=== PATIENT | male | born 1960 | race Caucasian/White ===

== ENCOUNTER 2017-10-23 21:05 | Emergency (ER) | payer SELFPAY, MEDICARE ==
[2017-10-23] MEDS: LIDOCAINE WITH 8.4% SOD BICARB 3 ML DISP.SYRIN. INJ (22:00)
== END 2017-10-23 22:47 | disposition home or self-care (01) ==
LOC: ER 21:05
DX: S01.311A Laceration without foreign body of right ear, initial encounter (principal); W01.198A Fall on same level from slipping, tripping and stumbling with subsequent striking against other object, initial encounter; Y93.E1 Activity, personal bathing and showering; Y92.89 Other specified places as the place of occurrence of the external cause; Y99.8 Other external cause status
CPT/HCPCS: 12052; 99284-25

== ENCOUNTER 2018-01-27 23:27 | Inpatient (IN) | payer SELFPAY ==
[2018-01-28 00:35] LABS: ADD MAN DIFF? NO
[2018-01-28 00:39] LABS: BASO % 1 % (0-3); EOS # 0.1 x10^3/uL (0.0-0.7); EOS % 4 % (0-3); HEMATOCRIT 30.8 % (39.0-53.0); HEMOGLOBIN 10.3 g/dL (13.0-17.5); LYMPH # 1.4 x10^3/uL (1.0-4.8); LYMPH % 35 % (24-48); MEAN CORPUSCULAR HEMOGLOBIN 30 pg (25-35); MEAN CORPUSCULAR HGB CONC 34 g/dL (31-37); MEAN CORPUSCULAR VOLUME 89 fL (79-100); MONO # 0.5 x10^3/uL (0.0-1.1); MONO % 13 % (0-9); NEUT % 48 % (31-73); PLATELET COUNT 225 x10^3/uL (140-400); RED BLOOD COUNT 3.45 x10^6/uL (4.30-5.70); RED CELL DISTRIBUTION WIDTH 18.4 % (11.5-14.5); WHITE BLOOD COUNT 4.1 x10^3/uL (4.0-11.0)
[2018-01-28 00:45] LABS: ANION GAP 11 (6-14); BLOOD UREA NITROGEN 13 mg/dL (8-26); BUN/CREATININE RATIO 7 (6-20); CALCIUM 8.5 mg/dL (8.5-10.1); CARBON DIOXIDE 31 mmol/L (21-32); CHLORIDE 102 mmol/L (98-107); CREATININE 1.8 mg/dL (0.7-1.3); GFR 39.2; GLUCOSE 91 mg/dL (70-99); SODIUM 144 mmol/L (136-145)
[2018-01-28 00:51] LABS: ALBUMIN 2.8 g/dL (3.4-5.0); ALBUMIN/GLOBULIN RATIO 0.6 (1.0-1.7); ALK PHOS 116 U/L (46-116); ALT (SGPT) 23 U/L (16-63); AST (SGOT) 63 U/L (15-37); TOTAL BILIRUBIN 0.2 mg/dL (0.2-1.0); TOTAL PROTEIN 7.3 g/dL (6.4-8.2)
[2018-01-28] MEDS ORDERED: VANCOMYCIN 1 GM in IV DEXTROSE 5% 250 ML IV (01:45)
[2018-01-28] MEDS: POTASSIUM CHLORIDE 20 MEQ TABLET.ER. PO (02:06)
[2018-01-28] MEDS: MORPHINE SULFATE 2 MG/ML DISP.SYRIN. IV ×5 (02:06→23:22)
[2018-01-28] MEDS: ONDANSETRON PF 4 MG/2 ML VIAL. IV ×2 (02:06→08:19)
[2018-01-28] MEDS: VANCOMYCIN 2 GM in IV 1/2 NORMAL SALINE 500 ML IV (02:07)
[2018-01-28 02:14] LABS: LACTIC ACID 1.9 mmol/L (0.4-2.0)
[2018-01-28] MEDS: VANCOMYCIN PER PHARMACY MC (03:37)
[2018-01-28] MEDS: LACTOBACILLUS RHAMNOSUS GG 1 CAPSULE. PO ×2 (08:19→20:41)
[2018-01-28] MEDS: METHADONE (DAILY MAINT DOSE) 100 MG/100 ML SOLUTION PO (09:58)
[2018-01-28 10:20] LABS: SEDIMENTATION RATE 71 (0-15)
[2018-01-28] MEDS ORDERED: LIDOCAINE WITH 8.4% SOD BICARB 3 ML DISP.SYRIN. ×2 (10:55→10:56)
[2018-01-28] MEDS: LIDOCAINE WITH 8.4% SOD BICARB 3 ML DISP.SYRIN. INJ (11:10)
[2018-01-28] MEDS: MULTIVIT INFUSN,ADULT 4,VIT K 10 ML, THIAMINE 100 MG, FOLIC ACID 1 MG in IV NORMAL SALI... IV (11:29)
[2018-01-28] MEDS ORDERED: chlordiazePOXIDE HCL 25 MG CAPSULE PO (12:30)
[2018-01-28] MEDS ORDERED: CEFEPIME HCL 2 GM in IV DEXTROSE 5% 100ML 100 ML IV (14:00)
[2018-01-28] MEDS: CEFEPIME HCL IV Push 2 GM VIAL. IVP ×2 (14:48→20:41)
[2018-01-28] MEDS: MICAFUNGIN 100 MG in IV DEXTROSE 5% 100ML 100 ML IV (14:48)
[2018-01-28] MEDS: IV NORMAL SALINE 1000ML BAG 1,000 ML IV ×2 (22:30→23:28)
[2018-01-29] MEDS ORDERED: VANCOMYCIN 1.5 GM in IV 1/2 NORMAL SALINE 500 ML IV (02:00)
[2018-01-29] MEDS ORDERED: VANCOMYCIN 1.25 GM in IV 1/2 NORMAL SALINE 250 ML IV (02:00)
[2018-01-29 06:11] LABS: ANION GAP 6 (6-14); BLOOD UREA NITROGEN 9 mg/dL (8-26); CALCIUM 8.9 mg/dL (8.5-10.1); CARBON DIOXIDE 31 mmol/L (21-32); CHLORIDE 100 mmol/L (98-107); CREATININE 0.9 mg/dL (0.7-1.3); GFR 87.3; GLUCOSE 101 mg/dL (70-99); POTASSIUM 3.2 mmol/L (3.5-5.1); SODIUM 137 mmol/L (136-145)
[2018-01-29] MEDS: CEFEPIME HCL IV Push 2 GM VIAL. IVP ×3 (06:17→23:33)
[2018-01-29] MEDS: MORPHINE SULFATE 2 MG/ML DISP.SYRIN. IV ×2 (06:25→23:59)
[2018-01-29] MEDS: IV NORMAL SALINE 1000ML BAG 1,000 ML IV ×2 (08:30→18:30)
[2018-01-29] MEDS: METHADONE (DAILY MAINT DOSE) 100 MG/100 ML SOLUTION PO (08:37)
[2018-01-29] MEDS: ACETAMINOPHEN 500 MG TABLET PO (08:38)
[2018-01-29] MEDS: FOLIC ACID 1 MG TABLET. PO (08:38)
[2018-01-29] MEDS: MULTIVITAMIN with MINERAL TABLET. PO (08:38)
[2018-01-29] MEDS: THIAMINE 100 MG TABLET. PO (08:38)
[2018-01-29] MEDS: LACTOBACILLUS RHAMNOSUS GG 1 CAPSULE. PO ×2 (08:38→21:41)
[2018-01-29] MEDS: LORazepam 0.5 MG TABLET PO ×2 (08:38→14:00)
[2018-01-29] MEDS: MICAFUNGIN 100 MG in IV DEXTROSE 5% 100ML 100 ML IV (13:59)
[2018-01-29] MEDS: POTASSIUM CHLORIDE 20 MEQ TABLET.ER. PO (14:00)
[2018-01-29] MEDS: oxyCODONE/APAP 5/325 1 TAB TABLET PO ×2 (14:01→21:41)
[2018-01-29] MEDS: NICOTINE 21MG PATCH. TD (23:55)
[2018-01-30] MEDS: oxyCODONE/APAP 5/325 1 TAB TABLET PO ×2 (03:11→11:33)
[2018-01-30] MEDS: IV NORMAL SALINE 1000ML BAG 1,000 ML IV (03:12)
[2018-01-30 04:04] LABS: ADD MAN DIFF? NO
[2018-01-30 04:14] LABS: BASO % 1 % (0-3); EOS # 0.2 x10^3/uL (0.0-0.7); EOS % 7 % (0-3); HEMATOCRIT 34.5 % (39.0-53.0); HEMOGLOBIN 11.3 g/dL (13.0-17.5); LYMPH # 0.7 x10^3/uL (1.0-4.8); LYMPH % 31 % (24-48); MEAN CORPUSCULAR HEMOGLOBIN 29 pg (25-35); MEAN CORPUSCULAR HGB CONC 33 g/dL (31-37); MEAN CORPUSCULAR VOLUME 89 fL (79-100); MONO # 0.4 x10^3/uL (0.0-1.1); MONO % 15 % (0-9); NEUT # 1.1 x10^3uL (1.8-7.7); NEUT % 47 % (31-73); PLATELET COUNT 185 x10^3/uL (140-400); RED BLOOD COUNT 3.87 x10^6/uL (4.30-5.70); RED CELL DISTRIBUTION WIDTH 17.1 % (11.5-14.5); WHITE BLOOD COUNT 2.4 x10^3/uL (4.0-11.0)
[2018-01-30 04:37] LABS: ALBUMIN 2.7 g/dL (3.4-5.0); ALBUMIN/GLOBULIN RATIO 0.6 (1.0-1.7); ALK PHOS 120 U/L (46-116); ALT (SGPT) 17 U/L (16-63); ANION GAP 10 (6-14); AST (SGOT) 44 U/L (15-37); BLOOD UREA NITROGEN 10 mg/dL (8-26); BUN/CREATININE RATIO 9 (6-20); CALCIUM 9.3 mg/dL (8.5-10.1); CARBON DIOXIDE 28 mmol/L (21-32); CHLORIDE 100 mmol/L (98-107); CREATININE 1.1 mg/dL (0.7-1.3); GFR 69.2; GLUCOSE 91 mg/dL (70-99); POTASSIUM 3.7 mmol/L (3.5-5.1); SODIUM 138 mmol/L (136-145); TOTAL BILIRUBIN 0.3 mg/dL (0.2-1.0); TOTAL PROTEIN 7.5 g/dL (6.4-8.2)
[2018-01-30] MEDS: CEFEPIME HCL IV Push 2 GM VIAL. IVP (06:01)
[2018-01-30] MEDS: MORPHINE SULFATE 2 MG/ML DISP.SYRIN. IV (06:11)
[2018-01-30] MEDS: LORazepam 0.5 MG TABLET PO (06:11)
[2018-01-30] MEDS: METHADONE (DAILY MAINT DOSE) 100 MG/100 ML SOLUTION PO (09:00)
[2018-01-30] MEDS: THIAMINE 100 MG TABLET. PO (11:28)
[2018-01-30] MEDS: MULTIVITAMIN with MINERAL TABLET. PO (11:28)
[2018-01-30] MEDS: FOLIC ACID 1 MG TABLET. PO (11:29)
[2018-01-30] MEDS: LACTOBACILLUS RHAMNOSUS GG 1 CAPSULE. PO (11:29)
== END 2018-01-30 12:30 | disposition home or self-care (01) | DRG 871 ==
LOC: 6 SOUTH 01-28 01:00 → ER 23:27
PROC: 02HV33Z Insertion of Infusion Device into Superior Vena Cava, Percutaneous Approach (ICD-10-PCS; principal; 2018-01-28)
PROC: B5181ZA Fluoroscopy of Superior Vena Cava using Low Osmolar Contrast, Guidance (ICD-10-PCS; 2018-01-28)
PROC: B548ZZA Ultrasonography of Superior Vena Cava, Guidance (ICD-10-PCS; 2018-01-28)
DX: A41.9 Sepsis, unspecified organism (principal); E43 Unspecified severe protein-calorie malnutrition; N17.0 Acute kidney failure with tubular necrosis; F10.239 Alcohol dependence with withdrawal, unspecified; L03.116 Cellulitis of left lower limb; M86.9 Osteomyelitis, unspecified; F11.20 Opioid dependence, uncomplicated; D63.8 Anemia in other chronic diseases classified elsewhere; Z68.21 Body mass index [BMI] 21.0-21.9, adult; Z82.49 Family history of ischemic heart disease and other diseases of the circulatory system; Z86.11 Personal history of tuberculosis; Z87.81 Personal history of (healed) traumatic fracture
CPT/HCPCS: 36415; 36569; 73610; 76937; 77001; 80048; 80053; 83605; 85025; 85651; 87040; 96374; 96375; 99285; 99285-25; 99406; C1751; C1892; J0692; J2020; J2060; J2248; J2270; J2405; J3370; J7030

== ENCOUNTER 2018-10-10 16:33 | Inpatient (IN) | payer SELFPAY ==
[~2018-10-10] VITALS: Ht 182.9 cm; Wt 71.0 kg
[~2018-10-10 16:33] MED LIST: CHLO25CA9 PO; METH5SOL PO; METO-239 PO; methadone PO
[2018-10-10] MEDS ORDERED: ONDANSETRON PF 4 MG/2 ML VIAL. IV ONE ×2 (17:00→23:15)
[2018-10-10] MEDS ORDERED: MULTIVIT INFUSN,ADULT 4,VIT K 10 ML, THIAMINE INJ 100 MG, FOLIC ACID INJ 1 MG in IV NOR... IV ONE (17:15)
[2018-10-10 17:17] LABS: BASO % 0 % (0-3); EOS # 0.1 x10^3/uL (0.0-0.7); EOS % 4 % (0-3); HEMATOCRIT 43.1 % (39.0-53.0); HEMOGLOBIN 14.1 g/dL (13.0-17.5); LYMPH # 0.6 x10^3/uL (1.0-4.8); LYMPH % 18 % (24-48); MEAN CORPUSCULAR HEMOGLOBIN 30 pg (25-35); MEAN CORPUSCULAR HGB CONC 33 g/dL (31-37); MEAN CORPUSCULAR VOLUME 90 fL (79-100); MONO # 0.4 x10^3/uL (0.0-1.1); MONO % 11 % (0-9); NEUT # 2.2 x10^3uL (1.8-7.7); NEUT % 67 % (31-73); PLATELET COUNT 87 x10^3/uL (140-400); RED BLOOD COUNT 4.77 x10^6/uL (4.30-5.70); RED CELL DISTRIBUTION WIDTH 17.3 % (11.5-14.5); WHITE BLOOD COUNT 3.3 x10^3/uL (4.0-11.0)
--- NOTE | 2018-10-10 17:25 | PHYS DOC ---
Past Medical History Past Medical History: Hepatitis, TB, Other Additional Past Medical Histor: HEPATITIS C, OSTEOMYELITIS, delirium tremens (ANTONELLA MUÑOZ APRN) Past Surgical History: Other Additional Past Surgical Histo: MULTIPLE L LEG SURGERIES, LEFT BKA (ANTONELLA MUÑOZ APRN) Alcohol Use: Heavy Drug Use: None (ANTONELLA MUÑOZ APRN) Adult General Chief Complaint Chief Complaint: ALCOHOL INTOXICATION HPI HPI Patient is a 58 year old male who presents to the emergency department today via EMS with complaints of left eye pain and head pain after a fall. Patient admits to drinking at least 6 beers today. He is unsure of how long he laid on the floor. He complains of nausea at this time. History of present illness is limited due to patient's intoxicated condition. (ANTONELLA MUÑOZ APRN) Review of Systems Review of Systems Incomplete ROS due to pt intoxication (ANTONELLA MUÑOZ APRN) Current Medications Current Medications Current Medications Medications (Trade) Dose Ordered Sig/Aldair Start Time Stop Time Status Last Admin Dose Admin Multivitamins 10 ml/Thiamine HCl 100 mg/Folic Acid 1 mg/Sodium Chloride 1,011.2 ml @ 1,000.088 mls/hr 1X ONCE 10/10/18 17:15 10/10/18 18:15 DC 10/10/18 17:16 1,000.088 MLS/HR Ondansetron HCl (Zofran) 4 mg 1X ONCE 10/10/18 17:00 10/10/18 17:05 DC 10/10/18 17:09 4 MG (IMELDA WATSON DO) Allergies Allergies Allergies Coded Allergies Type Severity Reaction Last Updated Verified No Known Drug Allergies 10/23/17 No (IMELDA WATSON DO) Physical Exam Physical Exam Constitutional: Well developed, well nourished, intoxicated heavy smell of ETOH HENT: Normocephalic, bilateral external ears normal, oropharynx moist, no oral exudates, mild swelling to bridge of nose. [] Eyes: PERRLA, conjunctiva normal, no discharge; swelling noted to left eyebrow and eye with mild erythema. [] Neck: Normal range of motion, no stridor; limited exam due to intoxication [] Cardiovascular:Heart rate regular rhythm Lungs & Thorax: respirations are even and unlabored, no retractions, lungs CTA. Skin: Warm, dry, no erythema, no rash[] Back: No tenderness, no CVA tenderness. [] Extremities: No cyanosis, no clubbing, ROM intact; L BKA amputation Neurologic: Drowsy, oriented X 3, slurred speech, normal motor function, normal sensory function, no focal deficits noted. [] Psychologic: Affect intoxicated, judgement impaired due to alcohol intoxication , mood agitated . [] (ANTONELLA MUÑOZ APRN) Current Patient Data Vital Signs Vital Signs Date Time Temp Pulse Resp B/P (MAP) Pulse Ox O2 Delivery O2 Flow Rate FiO2 10/10/18 18:01 96 22 127/88 (101) 99 Room Air 10/10/18 16:42 98.0 98.0 (IMELDA WATSON DO) Lab Values Laboratory Tests Test 10/10/18 17:00 10/10/18 18:15 10/10/18 19:25 White Blood Count 3.3 x10^3/uL (4.0-11.0) L Red Blood Count 4.77 x10^6/uL (4.30-5.70) Hemoglobin 14.1 g/dL (13.0-17.5) Hematocrit 43.1 % (39.0-53.0) Mean Corpuscular Volume 90 fL (79-100) Mean Corpuscular Hemoglobin 30 pg (25-35) Mean Corpuscular Hemoglobin Concent 33 g/dL (31-37) Red Cell Distribution Width 17.3 % (11.5-14.5) H Platelet Count 87 x10^3/uL (140-400) L Neutrophils (%) (Auto) 67 % (31-73) Lymphocytes (%) (Auto) 18 % (24-48) L Monocytes (%) (Auto) 11 % (0-9) H Eosinophils (%) (Auto) 4 % (0-3) H Basophils (%) (Auto) 0 % (0-3) Neutrophils # (Auto) 2.2 x10^3uL (1.8-7.7) Lymphocytes # (Auto) 0.6 x10^3/uL (1.0-4.8) L Monocytes # (Auto) 0.4 x10^3/uL (0.0-1.1) Eosinophils # (Auto) 0.1 x10^3/uL (0.0-0.7) Basophils # (Auto) 0.0 x10^3/uL (0.0-0.2) Creatine Kinase 391 U/L (39-308) H Creatine Kinase MB (Mass) 3.7 ng/mL (0.0-3.6) H Creatine Kinase MB Relative Index 0.9 % (0-4) Ethyl Alcohol Level 421 mg/dL (0-10) *H Sodium Level 143 mmol/L (136-145) Potassium Level 3.4 mmol/L (3.5-5.1) L Chloride Level 101 mmol/L (98-107) Carbon Dioxide Level 26 mmol/L (21-32) Anion Gap 16 (6-14) H Blood Urea Nitrogen 9 mg/dL (8-26) Creatinine 0.8 mg/dL (0.7-1.3) Estimated GFR (Cockcroft-Gault) 99.6 BUN/Creatinine Ratio 11 (6-20) Glucose Level 111 mg/dL (70-99) H Calcium Level 7.8 mg/dL (8.5-10.1) L Magnesium Level 2.0 mg/dL (1.8-2.4) Total Bilirubin 0.4 mg/dL (0.2-1.0) Aspartate Amino Transferase (AST) 622 U/L (15-37) H Alanine Aminotransferase (ALT) 126 U/L (16-63) H Alkaline Phosphatase 126 U/L (46-116) H Total Protein 7.1 g/dL (6.4-8.2) Albumin 3.3 g/dL (3.4-5.0) L Albumin/Globulin Ratio 0.9 (1.0-1.7) L Lactic Acid Level 2.7 mmol/L (0.4-2.0) H Ionized Calcium 0.97 mmol/L (1.13-1.32) L Laboratory Tests 10/10/18 17:00 Laboratory Tests 10/10/18 18:15 (IMELDA WATSON DO) EKG EKG [] (ANTONELLA MUÑOZ APRN) Radiology/Procedures Radiology/Procedures PROCEDURE: CT HEAD AND CERVICAL SPINE WO PQRS Compliance Statement: One or more of the following individualized dose reduction techniques were utilized for this examination: 1. Automated exposure control 2. Adjustment of the mA and/or kV according to patient size 3. Use of iterative reconstruction technique CT head, maxillofacial and cervical spine without contrast 10/10/2018 5:42 PM INDICATION: Fall with laceration to left eye COMPARISON: None available TECHNIQUE: Multiple axial CT images of the head were obtained from skull base through the vertex without intravenous contrast. Multiple axial CT images of the cervical spine and maxillofacial structures were obtained without intravenous contrast. Coronal and sagittal reformats are provided. FINDINGS: Head: Ventricles, sulci and basal cisterns are within normal limits. There is no hydrocephalus. Kaur-white matter differentiation is normal. There is no acute intracranial hemorrhage. There is no mass, mass effect or midline shift. Posterior fossa is normal in appearance. There is mild left periorbital soft tissue swelling. Orbits are spherical and contour. Osseous orbits are intact. Extraocular muscles appear intact. There is no lens dislocation. There is a minimally displaced left nasal bone fracture. Nasal septum is predominantly midline. Mild mucosal thickening of the maxillary sinuses is noted. Ostiomeatal units are patent. Ethmoid air cells, frontal sinuses and sphenoid sinuses are patent. Skull base is intact. Pterygoid plates are intact. Maxilla and mandible are intact. Temporomandibular joints are well aligned. Cervical spine: Alignment of the cervical spine is normal. Skull base is intact. Craniocervical junction is normal in appearance. Atlantoaxial articulation is normal. Vertebral body heights are maintained without evidence for acute fracture. There is mild disc height loss at C5-C6 and C6-C7. At C5-C6, there is a posterior disc osteophyte complex asymmetric to the right. There is moderate facet arthropathy with moderate uncovertebral joint disease resulting in mild bilateral neuroforaminal stenosis and mild spinal canal stenosis. At C6-C7, there is a posterior disc osteophyte complex with moderate facet and uncovertebral joint disease resulting in mild to moderate bilateral neuroforaminal stenosis and mild spinal canal stenosis. There is no prevertebral soft tissue swelling. Thyroid gland is normal in appearance. Visualized portions of the lung apices are normal without evidence for suspicious pulmonary nodule or infiltrate. IMPRESSION: 1. No acute intracranial hemorrhage. Left periorbital soft tissue swelling without associated maxillofacial fracture 2. No acute fracture or malalignment of the cervical spine. Mild cervical spondylosis. [] (ANTONELLA MUÑOZ APRN) Course & Med Decision Making Course & Med Decision Making Pertinent Labs and Imaging studies reviewed. (See chart for details) 1714- received a call from patient's brother Nathaniel, who the patient lives with. He reports that Juniorer did not lose consciousness and reports that EMS was called right after the patient fell. Brother states that patient was supposed to be taken to [facility] for alcohol rehabilitation today. Nathaniel's phone number is [phone]. Dx: acute alcohol intoxication CT head and c-spine negative for any acute finding. MARILOU 421; WBC 3.3, Alb 3.3, Ca 7.8, gluc 111, alk phos 126, ALT 126, AST 622, K 3.4, CK 391, CKMB 3.7, lactic acid 2.7 Presence of SIRS criteria noted, unlikely due to infection as there is no identifiable source. Pt was given 1 banana bag and 1L of NS in the ER, also received zofran 4 mg IV x2. 2034- Spoke with Dr. Alvares who will admit patient for acute alcohol intoxication. Alcohol withdrawl orders written, and thiamine written for tomorrow morning as requested. [] (ANTONELLA MUÑOZ PRODUCE ASSISTANT) Dragon Disclaimer Dragon Disclaimer This electronic medical record was generated, in whole or in part, using a voice recognition dictation system. (ANTONELLA MUÑOZ APRN) Departure Departure Impression: Primary Impression: Acute alcohol intoxication Disposition: 09 ADMITTED INPATIENT Admitting Physician: Prachi Alvares (ANTONELLA MUÑOZ PRODUCE ASSISTANT) Condition: STABLE Referrals: NO PCP (PCP) Scripts Multivits,Ca,Minerals/Iron/Fa (THERA-M TABLET) 1 Each Tablet 1 TAB PO DAILY for vitamin deficiency, #90 TAB Prov: PRACHI ALVARES MD 10/13/18 Cholecalciferol (Vitamin D3) (VITAMIN D3) 5,000 Unit Capsule 5000 UNIT PO DAILY for vitamin deficiency, #30 CAP Prov: PRACHI ALVARES MD 10/13/18 Attending Signature Attending Signature I have reviewed the PA/SECURITY AND PRIVACY CONSULTANT's note and plan of care. I was available for consultation as needed during the patient's visit in the emergency department. I agree with the clinical impression, plan, and disposition. (IMELDA WATSON DO) Problem Qualifiers Primary Impression: Acute alcohol intoxication Complication of substance-induced condition: uncomplicated Qualified Codes: F10.920 - Alcohol use, unspecified with intoxication, uncomplicated ANTONELLA MUÑOZ APRN Oct 10, 2018 17:25 IMELDA WATSON DO Oct 14, 2018 13:43
--- NOTE | 2018-10-10 18:13 | RAD ---
PQRS Compliance Statement: One or more of the following individualized dose reduction techniques were utilized for this examination: 1. Automated exposure control 2. Adjustment of the mA and/or kV according to patient size 3. Use of iterative reconstruction technique CT head, maxillofacial and cervical spine without contrast 10/10/2018 5:42 PM INDICATION: Fall with laceration to left eye COMPARISON: None available TECHNIQUE: Multiple axial CT images of the head were obtained from skull base through the vertex without intravenous contrast. Multiple axial CT images of the cervical spine and maxillofacial structures were obtained without intravenous contrast. Coronal and sagittal reformats are provided. FINDINGS: Head: Ventricles, sulci and basal cisterns are within normal limits. There is no hydrocephalus. Kaur-white matter differentiation is normal. There is no acute intracranial hemorrhage. There is no mass, mass effect or midline shift. Posterior fossa is normal in appearance. There is mild left periorbital soft tissue swelling. Orbits are spherical and contour. Osseous orbits are intact. Extraocular muscles appear intact. There is no lens dislocation. There is a minimally displaced left nasal bone fracture. Nasal septum is predominantly midline. Mild mucosal thickening of the maxillary sinuses is noted. Ostiomeatal units are patent. Ethmoid air cells, frontal sinuses and sphenoid sinuses are patent. Skull base is intact. Pterygoid plates are intact. Maxilla and mandible are intact. Temporomandibular joints are well aligned. Cervical spine: Alignment of the cervical spine is normal. Skull base is intact. Craniocervical junction is normal in appearance. Atlantoaxial articulation is normal. Vertebral body heights are maintained without evidence for acute fracture. There is mild disc height loss at C5-C6 and C6-C7. At C5-C6, there is a posterior disc osteophyte complex asymmetric to the right. There is moderate facet arthropathy with moderate uncovertebral joint disease resulting in mild bilateral neuroforaminal stenosis and mild spinal canal stenosis. At C6-C7, there is a posterior disc osteophyte complex with moderate facet and uncovertebral joint disease resulting in mild to moderate bilateral neuroforaminal stenosis and mild spinal canal stenosis. There is no prevertebral soft tissue swelling. Thyroid gland is normal in appearance. Visualized portions of the lung apices are normal without evidence for suspicious pulmonary nodule or infiltrate. IMPRESSION: 1. No acute intracranial hemorrhage. Left periorbital soft tissue swelling without associated maxillofacial fracture 2. No acute fracture or malalignment of the cervical spine. Mild cervical spondylosis. Electronically signed by: Sherly Waldrop MD (10/10/2018 6:10 PM) [facility]
[2018-10-10 18:29] LABS: CALCIUM 7.8 mg/dL (8.5-10.1); CREATININE 0.8 mg/dL (0.7-1.3); GFR 99.6; POTASSIUM 3.4 mmol/L (3.5-5.1)
[2018-10-10 18:37] LABS: ALBUMIN 3.3 g/dL (3.4-5.0); ALBUMIN/GLOBULIN RATIO 0.9 (1.0-1.7); TOTAL BILIRUBIN 0.4 mg/dL (0.2-1.0); TOTAL PROTEIN 7.1 g/dL (6.4-8.2)
[2018-10-10] MEDS ORDERED: IV NORMAL SALINE 1000ML BAG 1,000 ML IV ONE (20:45)
--- NOTE | 2018-10-10 22:40 | RAD ---
Chest radiograph 10/10/2018 7:52 PM INDICATION: Cough, syncope COMPARISON: None available TECHNIQUE: Portable upright frontal view of the chest is provided. FINDINGS: The cardiomediastinal silhouette is within normal limits. There are no pleural effusions. There is no pulmonary vascular congestion. There is no pneumothorax. The lungs are clear. No significant osseous abnormality is identified. IMPRESSION: No acute cardiopulmonary process. Electronically signed by: Sherly Waldrop MD (10/10/2018 10:37 PM) [facility]
[2018-10-10] MEDS: ONDANSETRON PF 4 MG/2 ML VIAL. IV PRN (23:27)
[2018-10-11] MEDS ORDERED: IV NORMAL SALINE 1000ML BAG 1,000 ML IV ONE (00:30)
[2018-10-11] MEDS: oxyCODONE/APAP 5/325 1 TAB TABLET PO PRN ×2 (00:36→04:58)
[2018-10-11 01:00] LABS: BILIRUBIN,URINE NEGATIVE (NEG); CLARITY,URINE CLEAR; COLOR,URINE YELLOW; NITRITE,URINE NEGATIVE (NEG); PROTEIN,URINE >=300 mg/dL (NEG-TRACE)
[2018-10-11 01:06] LABS: BARBITURATES NEG (NEG); BENZODIAZEPINES POS (NEG); CANNABINOIDS NEG (NEG); COCAINE NEG (NEG); METHADONE POS (NEG); OPIATES POS (NEG); PHENCYCLIDINE NEG (NEG)
[2018-10-11 01:11] LABS: AMPHETAMINE/METHAMPHETAMINE NEG (NEG)
[2018-10-11 01:16] LABS: BACTERIA,URINE 0 /HPF (0-FEW); HYALINE CASTS, URINE FEW /HPF; SQUAMOUS EPITHELIAL CELL,UR OCC /LPF; WBC,URINE 0 /HPF (0-4)
[2018-10-11 03:00] VITALS: BP 130/90
[2018-10-11 07:00] VITALS: BP_SYST 123; BP_SYST 146; BP_DIAS 48; BP_DIAS 66
--- NOTE | 2018-10-11 08:08 | PDOC1 ---
History and Physical Date of Admission Date of Admission DATE: 10/11/18 TIME: 08:06 Source Source: Chart review, Patient History of Present Illness History of Present Illness Mr. Harrington, is a 58 year old male admit from ER after a fall, with left eye pain. presents to the emergency department today via EMS with complaints of left eye pain and head pain after a fall. Patient admits to drinking at least 6 beers today. He is unsure of how long he laid on the floor. He complains of nausea at this time. History of present illness is limited due to patient's intoxicated condition. Past Medical History Hepatobiliary: Hep A/B/C Psych: Anxiety, Addictions, Other Musculoskeletal: Other Infectious disease: Other Past Surgical History Past Surgical History: Other Family History Family History: Coronary Artery Disease Social History Smoke: <1 pack per day ALCOHOL: heavy Drugs: None Current Problem List Problem List Problems Medical Problems: (1) Acute alcohol intoxication Status: Acute Current Medications Current Medications Current Medications Ondansetron HCl (Zofran) 4 mg 1X ONCE IV Last administered on 10/10/18at 17:09 ; Start 10/10/18 at 17:00; Stop 10/10/18 at 17:05; Status DC Multivitamins 10 ml/Thiamine HCl 100 mg/Folic Acid 1 mg/Sodium Chloride 1,011.2 ml @ 1,000.088 mls/hr 1X ONCE IV Last administered on 10/10/18at 17:16; Start 10/10/18 at 17:15; Stop 10/10/18 at 18:15; Status DC Sodium Chloride 1,000 ml @ 1,000 mls/hr 1X ONCE IV Last administered on at 20:51; Start 10/10/18 at 20:45; Stop 10/10/18 at 21:44; Status DC Multivitamins (Thera M Plus) 1 tab DAILY PO ; Start 10/11/18 at 09:00 Lorazepam (Ativan) 2 mg PRN Q1HR PRN IV For CIWA 8-14 Last administered on 10/10at 23:27; Start 10/10/18 at 20:45 Lorazepam (Ativan) 4 mg PRN Q1HR PRN IV For CIWA 15 or greater Last administered on 10/11/18at 04:58; Start 10/10/18 at 20:45 Thiamine Mononitrate (Vitamin B-1) 100 mg DAILY PO ; Start 10/11/18 at 09:00 Ondansetron HCl (Zofran) 4 mg 1X ONCE IV ; Start 10/10/18 at 23:15; Stop at 23:16; Status UNV Ondansetron HCl (Zofran) 4 mg PRN Q8HRS PRN IV NAUSEA/VOMITING Last administered on 10/10/18at 23:27; Start 10/10/18 at 23:15 Sodium Chloride 1,000 ml @ 100 mls/hr 1X ONCE IV Last administered on at 00:35; Start 10/11/18 at 00:30; Stop 10/11/18 at 10:29 Oxycodone/ Acetaminophen (Percocet 5/325) 1 tab PRN Q4HRS PRN PO PAIN Last administered on 10/11/18at 04:58; Start 10/11/18 at 00:30; Stop 10/11/18 at 07:48 ; Status DC Vitamin D (Vitamin D3) 5,000 unit DAILY PO ; Start 10/11/18 at 09:00 Methadone HCl (Dolophine) 15 mg BID PO ; Start 10/11/18 at 09:00; Status UNV Oxycodone/ Acetaminophen (Percocet 10/325) 1 tab PRN Q4HRS PRN PO pain; Start 10/11/18 at 08:00 Active Scripts Active Chlordiazepoxide Hcl 25 Mg Capsule 50 Mg PO PRN Q6HRS PRN 20 Days Methadone Hcl 5 Mg/5 Ml Solution 75 Mg PO DAILY 10 Days Reported Metoprolol Succinate ( Xl ) (Metoprolol Succinate) 25 Mg Tab.er.24h 1 Tab PO DAILY [methadone] 75 Mg PO DAILY Allergies Allergies: Coded Allergies: No Known Drug Allergies (Unverified , 10/23/17) ROS General: YES: Fatigue, Malaise PSYCHOLOGICAL ROS: YES: Irritablity, Memory difficulties, Sleep disturbances Eyes: No Blurry vision, No Decreased vision, No Double vision, No Dry eyes, No Excessive tearing, No Eye Pain, No Itchy Eyes, No Loss of vision, No Photophobia , No Scotomata, No Uses contacts, No Uses glasses, No Other Respiratory: No: Cough, Hemoptysis, Orthopnea, Pleuritic Pain, Shortness of breath, SOB with excertion, Sputum Changes, Stridor, Tachypnea, Wheezing, Other Cardiovascular: No Chest Pain, No Palpitations, No Orthopnea, No Paroxysmal Noc. Dyspnea, No Edema, No Lt Headedness, No Other Gastrointestinal: Yes Nausea Genitourinary: No Dysuria, No Frequency, No Incontinence, No Hematuria, No Retention, No Discharge, No Urgency, No Pain, No Flank Pain, No Other, No , No , No , No , No , No , No Musculoskeletal: No Gait Disturbance, No Joint Pain, No Joint Stiffness, No Joint Swelling, No Muscle Pain, No Muscular Weakness, No Pain In:, No Swelling In:, No Other Neurological: No Behavorial Changes, No Bowel/Bladder ControlChng, No Confusion , No Dizziness, No Gait Disturbance, No Headaches, No Impaired Coord/balance, No Memory Loss, No Numbness/Tingling, No Seizures, No Speech Problems, No Tremors, No Visual Changes, No Weakness, No Other Skin: No Dry Skin, No Eczema, No Hair Changes, No Lumps, No Mole Changes, No Mottling, No Nail Changes, No Pruritus, No Rash, No Skin Lesion Changes, No Other, No Acne Physical Exam General: Alert, Oriented X3, Cooperative, mild distress HEENT: EOMI, Mucous membr. moist/pink Lungs: Clear to auscultation, Normal air movement Heart: S1S2, RRR, no murmurs Abdomen: Normal bowel sounds, Soft Extremities: No cyanosis, No edema Skin: No rashes, No significant lesion Neuro: Normal speech, Normal tone, Other (nystagmus, slight asterixis) Psych/Mental Status: Mental status NL Vitals Vitals Vital Signs Date Time Temp Pulse Resp B/P (MAP) Pulse Ox O2 Delivery O2 Flow Rate FiO2 10/11/18 06:00 Room Air 10/11/18 03:00 99.1 113 18 130/90 (103) 97 99.1 Labs Labs Laboratory Tests Test 10/10/18 17:00 10/10/18 18:15 10/10/18 19:25 10/11/18 00:45 White Blood Count 3.3 x10^3/uL (4.0-11.0) Red Blood Count 4.77 x10^6/uL (4.30-5.70) Hemoglobin 14.1 g/dL (13.0-17.5) Hematocrit 43.1 % (39.0-53.0) Mean Corpuscular Volume 90 fL (79-100) Mean Corpuscular Hemoglobin 30 pg (25-35) Mean Corpuscular Hemoglobin Concent 33 g/dL (31-37) Red Cell Distribution Width 17.3 % (11.5-14.5) Platelet Count 87 x10^3/uL (140-400) Neutrophils (%) (Auto) 67 % (31-73) Lymphocytes (%) (Auto) 18 % (24-48) Monocytes (%) (Auto) 11 % (0-9) Eosinophils (%) (Auto) 4 % (0-3) Basophils (%) (Auto) 0 % (0-3) Neutrophils # (Auto) 2.2 x10^3uL (1.8-7.7) Lymphocytes # (Auto) 0.6 x10^3/uL (1.0-4.8) Monocytes # (Auto) 0.4 x10^3/uL (0.0-1.1) Eosinophils # (Auto) 0.1 x10^3/uL (0.0-0.7) Basophils # (Auto) 0.0 x10^3/uL (0.0-0.2) Creatine Kinase 391 U/L (39-308) Creatine Kinase MB (Mass) 3.7 ng/mL (0.0-3.6) Creatine Kinase MB Relative Index 0.9 % (0-4) Ethyl Alcohol Level 421 mg/dL (0-10) Sodium Level 143 mmol/L (136-145) Potassium Level 3.4 mmol/L (3.5-5.1) Chloride Level 101 mmol/L (98-107) Carbon Dioxide Level 26 mmol/L (21-32) Anion Gap 16 (6-14) Blood Urea Nitrogen 9 mg/dL (8-26) Creatinine 0.8 mg/dL (0.7-1.3) Estimated GFR (Cockcroft-Gault) 99.6 BUN/Creatinine Ratio 11 (6-20) Glucose Level 111 mg/dL (70-99) Calcium Level 7.8 mg/dL (8.5-10.1) Magnesium Level 2.0 mg/dL (1.8-2.4) Total Bilirubin 0.4 mg/dL (0.2-1.0) Aspartate Amino Transf (AST/SGOT) 622 U/L (15-37) Alanine Aminotransferase (ALT/SGPT) 126 U/L (16-63) Alkaline Phosphatase 126 U/L (46-116) Total Protein 7.1 g/dL (6.4-8.2) Albumin 3.3 g/dL (3.4-5.0) Albumin/Globulin Ratio 0.9 (1.0-1.7) Lactic Acid Level 2.7 mmol/L (0.4-2.0) Ionized Calcium 0.97 mmol/L (1.13-1.32) Urine Collection Type Unknown Urine Color Yellow Urine Clarity Clear Urine pH 6.0 Urine Specific [place] 1.015 Urine Protein >=300 mg/dL (NEG-TRACE) Urine Glucose (UA) Negative mg/dL (NEG) Urine Ketones (Stick) 15 mg/dL (NEG) Urine Blood Moderate (NEG) Urine Nitrite Negative (NEG) Urine Bilirubin Negative (NEG) Urine Urobilinogen Dipstick 1.0 mg/dL (0.2 mg/dL) Urine Leukocyte Esterase Negative (NEG) Urine RBC 6-10 /HPF (0-2) Urine WBC 0 /HPF (0-4) Urine Squamous Epithelial Cells Occ /LPF Urine Bacteria 0 /HPF (0-FEW) Urine Hyaline Casts Few /HPF Urine Mucus Mod /LPF Urine Opiates Screen Pos (NEG) Urine Methadone Screen Pos (NEG) Urine Barbiturates Neg (NEG) Urine Phencyclidine Screen Neg (NEG) Urine Amphetamine/Methamphetamine Neg (NEG) Urine Benzodiazepines Screen Pos (NEG) Urine Cocaine Screen Neg (NEG) Urine Cannabinoids Screen Neg (NEG) Urine Ethyl Alcohol Pos (NEG) Laboratory Tests Test 10/10/18 17:00 10/10/18 18:15 10/10/18 19:25 10/11/18 00:45 White Blood Count 3.3 x10^3/uL (4.0-11.0) Red Blood Count 4.77 x10^6/uL (4.30-5.70) Hemoglobin 14.1 g/dL (13.0-17.5) Hematocrit 43.1 % (39.0-53.0) Mean Corpuscular Volume 90 fL (79-100) Mean Corpuscular Hemoglobin 30 pg (25-35) Mean Corpuscular Hemoglobin Concent 33 g/dL (31-37) Red Cell Distribution Width 17.3 % (11.5-14.5) Platelet Count 87 x10^3/uL (140-400) Neutrophils (%) (Auto) 67 % (31-73) Lymphocytes (%) (Auto) 18 % (24-48) Monocytes (%) (Auto) 11 % (0-9) Eosinophils (%) (Auto) 4 % (0-3) Basophils (%) (Auto) 0 % (0-3) Neutrophils # (Auto) 2.2 x10^3uL (1.8-7.7) Lymphocytes # (Auto) 0.6 x10^3/uL (1.0-4.8) Monocytes # (Auto) 0.4 x10^3/uL (0.0-1.1) Eosinophils # (Auto) 0.1 x10^3/uL (0.0-0.7) Basophils # (Auto) 0.0 x10^3/uL (0.0-0.2) Creatine Kinase 391 U/L (39-308) Creatine Kinase MB (Mass) 3.7 ng/mL (0.0-3.6) Creatine Kinase MB Relative Index 0.9 % (0-4) Ethyl Alcohol Level 421 mg/dL (0-10) Sodium Level 143 mmol/L (136-145) Potassium Level 3.4 mmol/L (3.5-5.1) Chloride Level 101 mmol/L (98-107) Carbon Dioxide Level 26 mmol/L (21-32) Anion Gap 16 (6-14) Blood Urea Nitrogen 9 mg/dL (8-26) Creatinine 0.8 mg/dL (0.7-1.3) Estimated GFR (Cockcroft-Gault) 99.6 BUN/Creatinine Ratio 11 (6-20) Glucose Level 111 mg/dL (70-99) Calcium Level 7.8 mg/dL (8.5-10.1) Magnesium Level 2.0 mg/dL (1.8-2.4) Total Bilirubin 0.4 mg/dL (0.2-1.0) Aspartate Amino Transf (AST/SGOT) 622 U/L (15-37) Alanine Aminotransferase (ALT/SGPT) 126 U/L (16-63) Alkaline Phosphatase 126 U/L (46-116) Total Protein 7.1 g/dL (6.4-8.2) Albumin 3.3 g/dL (3.4-5.0) Albumin/Globulin Ratio 0.9 (1.0-1.7) Lactic Acid Level 2.7 mmol/L (0.4-2.0) Ionized Calcium 0.97 mmol/L (1.13-1.32) Urine Collection Type Unknown Urine Color Yellow Urine Clarity Clear Urine pH 6.0 Urine Specific [place] 1.015 Urine Protein >=300 mg/dL (NEG-TRACE) Urine Glucose (UA) Negative mg/dL (NEG) Urine Ketones (Stick) 15 mg/dL (NEG) Urine Blood Moderate (NEG) Urine Nitrite Negative (NEG) Urine Bilirubin Negative (NEG) Urine Urobilinogen Dipstick 1.0 mg/dL (0.2 mg/dL) Urine Leukocyte Esterase Negative (NEG) Urine RBC 6-10 /HPF (0-2) Urine WBC 0 /HPF (0-4) Urine Squamous Epithelial Cells Occ /LPF Urine Bacteria 0 /HPF (0-FEW) Urine Hyaline Casts Few /HPF Urine Mucus Mod /LPF Urine Opiates Screen Pos (NEG) Urine Methadone Screen Pos (NEG) Urine Barbiturates Neg (NEG) Urine Phencyclidine Screen Neg (NEG) Urine Amphetamine/Methamphetamine Neg (NEG) Urine Benzodiazepines Screen Pos (NEG) Urine Cocaine Screen Neg (NEG) Urine Cannabinoids Screen Neg (NEG) Urine Ethyl Alcohol Pos (NEG) VTE Prophylaxis Ordered VTE Prophylaxis Devices: No VTE Pharmacological Prophylaxi: Yes Assessment/Plan Assessment/Plan toxic encephalopathy Acute EtOH intox, level 421 Hx narcotic abuse, on methadone replacement 30/day anxiety d.o, mult substance abuse tobacco use disorder Hepatitis c with EtOH abuse, bad combo plan to have f/u at [place] for EtOH rehab, acute intox today, detox, ativan, vitamins, JODY ALVARES MD Oct 11, 2018 08:08
[2018-10-11] MEDS: MULTIVITAMIN with MINERAL TABLET. PO SCH (09:02)
[2018-10-11] MEDS: CHOLECALCIFEROL (VITAMIN D3) 5,000 UNIT CAPSULE PO SCH (09:02)
[2018-10-11] MEDS: THIAMINE 100 MG TABLET. PO SCH (09:02)
[2018-10-11] MEDS: oxyCODONE/APAP 10/325 1 TAB TABLET PO PRN ×2 (09:03→14:35)
--- NOTE | 2018-10-11 09:34 | NUR ---
KRISTOPHER informed by RN pt is brother is interested if pt can go to [facility]. KRISTOPHER phoned PAT team for assessment for ETOH use and assessment. Rhonda will come in to see pt. Will continue to follow.
[2018-10-11] MEDS: METHADONE 5 MG TABLET. PO SCH ×2 (10:20→20:50)
[2018-10-11 11:00] VITALS: BP 142/100
--- NOTE | 2018-10-11 11:35 | NUR ---
Pt's brother has requested pt go to [facility] in [place], [place] for drug and alcohol rehab when pt ready for discharge. material preparation worker and Dr Song notified.
[2018-10-11] MEDS: ONDANSETRON PF 4 MG/2 ML VIAL. IV PRN ×2 (12:10→20:51)
[2018-10-11] MEDS: NICOTINE 21MG PATCH. TD PRN (12:26)
--- NOTE | 2018-10-11 12:41 | NUR ---
SW following pt. Spoke with Rhonda and pt agreeable to [facility]. SW phoned and faxed referral to [facility], phone: [phone], fax: [phone]. Pt acceptance and admission pending. KRISTOPHER will continue to follow.
[2018-10-11 14:49] VITALS: BP 164/14
[2018-10-11 19:00] VITALS: BP 155/102
[2018-10-11 23:00] VITALS: BP 157/110
[2018-10-12] MEDS: oxyCODONE/APAP 10/325 1 TAB TABLET PO PRN ×4 (00:50→18:14)
[2018-10-12 03:05] VITALS: BP 147/109
[2018-10-12] MEDS: ONDANSETRON PF 4 MG/2 ML VIAL. IV PRN ×2 (05:04→19:39)
[2018-10-12 07:00] VITALS: BP 157/117
[2018-10-12] MEDS ORDERED: PROCHLORPERAZINE 10 MG/2 ML VIAL. IM PRN (07:45)
[2018-10-12] MEDS: CHOLECALCIFEROL (VITAMIN D3) 5,000 UNIT CAPSULE PO SCH (08:10)
[2018-10-12] MEDS: THIAMINE 100 MG TABLET. PO SCH (08:10)
[2018-10-12] MEDS: MULTIVITAMIN with MINERAL TABLET. PO SCH (08:10)
[2018-10-12] MEDS: METHADONE 5 MG TABLET. PO SCH ×2 (08:10→21:05)
[2018-10-12] MEDS: PROCHLORPERAZINE 10 MG/2 ML VIAL. IV PRN ×2 (08:14→18:15)
[2018-10-12] MEDS: NICOTINE 21MG PATCH. TD PRN (08:14)
--- NOTE | 2018-10-12 09:48 | PDOC ---
PROGRESS NOTES Chief Complaint Chief Complaint toxic encephalopathy Acute EtOH intox, level 421 now tachycardia and alcohol withdrawl without delirium Hx narcotic abuse, on methadone replacement 30/day anxiety d.o, mult substance abuse tobacco use disorder Hepatitis c History of Present Illness History of Present Illness regular diet methadone replacement as at home plan to have f/u at [facility] for EtOH rehab, acute intox today, detox, ativan, vitamins, Vitals Vitals Vital Signs Date Time Temp Pulse Resp B/P (MAP) Pulse Ox O2 Delivery O2 Flow Rate FiO2 10/12/18 08:10 Room Air 10/12/18 07:00 98.3 104 20 157/117 (130) 97 98.3 10/11/18 10:20 2.0 Physical Exam General: Alert, Oriented X3, Cooperative, mild distress Heart: Regular rate, No murmurs, Other (tachy) Abdomen: Normal bowel sounds, Soft Extremities: No cyanosis, No edema Skin: No rashes, No significant lesion Assessment and Plan Assessmemt and Plan Problems Medical Problems: (1) Acute alcohol intoxication Status: Acute Comment Review of Relevant I have reviewed the following items ashanti (where applicable) has been applied. Labs Laboratory Tests Test 10/10/18 17:00 10/10/18 18:15 10/10/18 19:25 10/11/18 00:45 White Blood Count 3.3 x10^3/uL (4.0-11.0) Red Blood Count 4.77 x10^6/uL (4.30-5.70) Hemoglobin 14.1 g/dL (13.0-17.5) Hematocrit 43.1 % (39.0-53.0) Mean Corpuscular Volume 90 fL (79-100) Mean Corpuscular Hemoglobin 30 pg (25-35) Mean Corpuscular Hemoglobin Concent 33 g/dL (31-37) Red Cell Distribution Width 17.3 % (11.5-14.5) Platelet Count 87 x10^3/uL (140-400) Neutrophils (%) (Auto) 67 % (31-73) Lymphocytes (%) (Auto) 18 % (24-48) Monocytes (%) (Auto) 11 % (0-9) Eosinophils (%) (Auto) 4 % (0-3) Basophils (%) (Auto) 0 % (0-3) Neutrophils # (Auto) 2.2 x10^3uL (1.8-7.7) Lymphocytes # (Auto) 0.6 x10^3/uL (1.0-4.8) Monocytes # (Auto) 0.4 x10^3/uL (0.0-1.1) Eosinophils # (Auto) 0.1 x10^3/uL (0.0-0.7) Basophils # (Auto) 0.0 x10^3/uL (0.0-0.2) Creatine Kinase 391 U/L (39-308) Creatine Kinase MB (Mass) 3.7 ng/mL (0.0-3.6) Creatine Kinase MB Relative Index 0.9 % (0-4) Ethyl Alcohol Level 421 mg/dL (0-10) Sodium Level 143 mmol/L (136-145) Potassium Level 3.4 mmol/L (3.5-5.1) Chloride Level 101 mmol/L (98-107) Carbon Dioxide Level 26 mmol/L (21-32) Anion Gap 16 (6-14) Blood Urea Nitrogen 9 mg/dL (8-26) Creatinine 0.8 mg/dL (0.7-1.3) Estimated GFR (Cockcroft-Gault) 99.6 BUN/Creatinine Ratio 11 (6-20) Glucose Level 111 mg/dL (70-99) Calcium Level 7.8 mg/dL (8.5-10.1) Magnesium Level 2.0 mg/dL (1.8-2.4) Total Bilirubin 0.4 mg/dL (0.2-1.0) Aspartate Amino Transf (AST/SGOT) 622 U/L (15-37) Alanine Aminotransferase (ALT/SGPT) 126 U/L (16-63) Alkaline Phosphatase 126 U/L (46-116) Total Protein 7.1 g/dL (6.4-8.2) Albumin 3.3 g/dL (3.4-5.0) Albumin/Globulin Ratio 0.9 (1.0-1.7) Lactic Acid Level 2.7 mmol/L (0.4-2.0) Ionized Calcium 0.97 mmol/L (1.13-1.32) Urine Collection Type Unknown Urine Color Yellow Urine Clarity Clear Urine pH 6.0 Urine Specific [place] 1.015 Urine Protein >=300 mg/dL (NEG-TRACE) Urine Glucose (UA) Negative mg/dL (NEG) Urine Ketones (Stick) 15 mg/dL (NEG) Urine Blood Moderate (NEG) Urine Nitrite Negative (NEG) Urine Bilirubin Negative (NEG) Urine Urobilinogen Dipstick 1.0 mg/dL (0.2 mg/dL) Urine Leukocyte Esterase Negative (NEG) Urine RBC 6-10 /HPF (0-2) Urine WBC 0 /HPF (0-4) Urine Squamous Epithelial Cells Occ /LPF Urine Bacteria 0 /HPF (0-FEW) Urine Hyaline Casts Few /HPF Urine Mucus Mod /LPF Urine Opiates Screen Pos (NEG) Urine Methadone Screen Pos (NEG) Urine Barbiturates Neg (NEG) Urine Phencyclidine Screen Neg (NEG) Urine Amphetamine/Methamphetamine Neg (NEG) Urine Benzodiazepines Screen Pos (NEG) Urine Cocaine Screen Neg (NEG) Urine Cannabinoids Screen Neg (NEG) Urine Ethyl Alcohol Pos (NEG) Medications Current Medications Ondansetron HCl (Zofran) 4 mg 1X ONCE IV Last administered on 10/10/18at 17:09 ; Start 10/10/18 at 17:00; Stop 10/10/18 at 17:05; Status DC Multivitamins 10 ml/Thiamine HCl 100 mg/Folic Acid 1 mg/Sodium Chloride 1,011.2 ml @ 1,000.088 mls/hr 1X ONCE IV Last administered on 10/10/18at 17:16; Start 10/10/18 at 17:15; Stop 10/10/18 at 18:15; Status DC Sodium Chloride 1,000 ml @ 1,000 mls/hr 1X ONCE IV Last administered on at 20:51; Start 10/10/18 at 20:45; Stop 10/10/18 at 21:44; Status DC Multivitamins (Thera M Plus) 1 tab DAILY PO Last administered on 10/12/18at 08: 10; Start 10/11/18 at 09:00 Lorazepam (Ativan) 2 mg PRN Q1HR PRN IV For CIWA 8-14 Last administered on 10/12at 08:10; Start 10/10/18 at 20:45 Lorazepam (Ativan) 4 mg PRN Q1HR PRN IV For CIWA 15 or greater Last administered on 10/11/18at 04:58; Start 10/10/18 at 20:45 Thiamine Mononitrate (Vitamin B-1) 100 mg DAILY PO Last administered on at 08:10; Start 10/11/18 at 09:00 Ondansetron HCl (Zofran) 4 mg 1X ONCE IV ; Start 10/10/18 at 23:15; Stop at 23:16; Status UNV Ondansetron HCl (Zofran) 4 mg PRN Q8HRS PRN IV NAUSEA/VOMITING, 1ST CHOICE Last administered on 10/12/18at 05:04; Start 10/10/18 at 23:15 Sodium Chloride 1,000 ml @ 100 mls/hr 1X ONCE IV Last administered on at 00:35; Start 10/11/18 at 00:30; Stop 10/11/18 at 10:29; Status DC Oxycodone/ Acetaminophen (Percocet 5/325) 1 tab PRN Q4HRS PRN PO PAIN Last administered on 10/11/18at 04:58; Start 10/11/18 at 00:30; Stop 10/11/18 at 07:48 ; Status DC Vitamin D (Vitamin D3) 5,000 unit DAILY PO Last administered on 10/12/18at 08:10 ; Start 10/11/18 at 09:00 Methadone HCl (Dolophine) 15 mg BID PO Last administered on 10/12/18at 08:10; Start 10/11/18 at 10:00 Oxycodone/ Acetaminophen (Percocet 10/325) 1 tab PRN Q4HRS PRN PO pain Last administered on 10/12/18at 05:04; Start 10/11/18 at 08:00 Nicotine (Nicoderm Cq 21mg) 1 patch PRN DAILY PRN TD SMOKING CESSATION Last administered on 10/12/18at 08:14; Start 10/11/18 at 09:15 Prochlorperazine Edisylate (Compazine) 10 mg PRN Q6HRS PRN IM NAUSEA/VOMITING; Start 10/12/18 at 07:45; Stop 10/12/18 at 08:12; Status DC Prochlorperazine Edisylate (Compazine) 10 mg PRN Q6HRS PRN IV NAUSEA/VOMITING, 2ND CHOICE Last administered on 10/12/18at 08:14; Start 10/12/18 at 08:15 Active Scripts Active Chlordiazepoxide Hcl 25 Mg Capsule 50 Mg PO PRN Q6HRS PRN 20 Days Methadone Hcl 5 Mg/5 Ml Solution 75 Mg PO DAILY 10 Days Reported Metoprolol Succinate ( Xl ) (Metoprolol Succinate) 25 Mg Tab.er.24h 1 Tab PO DAILY [methadone] 75 Mg PO DAILY Vitals/I & O Vital Sign - Last 24 Hours 10/11/18 10/11/18 10/11/18 10/11/18 10:20 11:00 14:35 14:49 Temp 99.1 98.8 99.1 98.8 Pulse 94 90 Resp 20 18 20 20 B/P (MAP) 142/100 (114) 164/14 (64) Pulse Ox 97 100 97 99 O2 Delivery Room Air Room Air Room Air Room Air O2 Flow Rate 2.0 10/11/18 10/11/18 10/11/18 10/11/18 15:35 19:00 20:00 20:50 Temp 99.2 99.2 Pulse 101 Resp 20 20 15 B/P (MAP) 155/102 (119) Pulse Ox 99 97 95 O2 Delivery Room Air Room Air Room Air 10/11/18 10/11/18 10/12/18 10/12/18 21:50 23:00 00:50 03:05 Temp 99.0 99.0 99.0 99.0 Pulse 112 97 Resp 15 20 20 B/P (MAP) 157/110 (126) 147/109 (122) Pulse Ox 98 99 97 O2 Delivery Room Air Room Air Room Air Room Air 10/12/18 10/12/18 10/12/18 10/12/18 05:04 06:14 07:00 08:10 Temp 98.3 98.3 Pulse 104 Resp 12 20 B/P (MAP) 157/117 (130) Pulse Ox 97 O2 Delivery Room Air Room Air Room Air Room Air Intake and Output 10/11/18 10/11/18 10/12/18 14:59 22:59 06:59 Intake Total 240 ml Output Total 550 ml 0 ml Balance -310 ml 0 ml JODY ALVARES MD Oct 12, 2018 09:48
[2018-10-12 10:41] LABS: ALBUMIN 3.3 g/dL (3.4-5.0); ALBUMIN/GLOBULIN RATIO 0.8 (1.0-1.7); CALCIUM 9.2 mg/dL (8.5-10.1); CREATININE 0.9 mg/dL (0.7-1.3); TOTAL BILIRUBIN 0.6 mg/dL (0.2-1.0); TOTAL PROTEIN 7.4 g/dL (6.4-8.2)
[2018-10-12 10:51] LABS: PROTHROMBIN TIME PATIENT 12.5 SEC (11.7-14.0)
[2018-10-12 11:00] VITALS: BP 130/100
[2018-10-12 11:04] LABS: BASO % 1 % (0-3); EOS # 0.1 x10^3/uL (0.0-0.7); EOS % 3 % (0-3); HEMATOCRIT 40.6 % (39.0-53.0); HEMOGLOBIN 13.2 g/dL (13.0-17.5); LYMPH # 0.4 x10^3/uL (1.0-4.8); LYMPH % 28 % (24-48); MEAN CORPUSCULAR HEMOGLOBIN 29 pg (25-35); MEAN CORPUSCULAR HGB CONC 33 g/dL (31-37); MEAN CORPUSCULAR VOLUME 89 fL (79-100); MONO # 0.2 x10^3/uL (0.0-1.1); MONO % 17 % (0-9); NEUT # 0.8 x10^3uL (1.8-7.7); NEUT % 52 % (31-73); PLATELET COUNT 51 x10^3/uL (140-400); RED BLOOD COUNT 4.54 x10^6/uL (4.30-5.70); RED CELL DISTRIBUTION WIDTH 16.5 % (11.5-14.5)
[2018-10-12 11:30] LABS: WHITE BLOOD COUNT 1.5 x10^3/uL (4.0-11.0)
[2018-10-12 12:51] LABS: % BANDS 12 % (0-9); % BASOS 2 % (0-3); % EOS 2 % (0-5); % LYMPHS 30 % (24-48); % MONOS 16 % (0-10); % SEGS 38 % (35-66)
[2018-10-12 12:52] LABS: PLT ESTIMATE DECREASED (ADEQUATE)
[2018-10-12 15:00] VITALS: BP 140/105
[2018-10-12 19:00] VITALS: BP 137/102
[2018-10-12 23:00] VITALS: BP 133/97
[2018-10-13] MEDS: oxyCODONE/APAP 10/325 1 TAB TABLET PO PRN ×3 (00:09→11:47)
[2018-10-13] MEDS: PROCHLORPERAZINE 10 MG/2 ML VIAL. IV PRN ×2 (01:22→08:13)
[2018-10-13 03:00] VITALS: BP 149/109
[2018-10-13] MEDS: ONDANSETRON PF 4 MG/2 ML VIAL. IV PRN (04:52)
[2018-10-13 07:00] VITALS: BP 137/98
[2018-10-13] MEDS: NICOTINE 21MG PATCH. TD PRN (08:12)
[2018-10-13] MEDS: METHADONE 5 MG TABLET. PO SCH (08:12)
[2018-10-13] MEDS: MULTIVITAMIN with MINERAL TABLET. PO SCH (08:12)
[2018-10-13] MEDS: CHOLECALCIFEROL (VITAMIN D3) 5,000 UNIT CAPSULE PO SCH (08:12)
[2018-10-13] MEDS: THIAMINE 100 MG TABLET. PO SCH (08:12)
[2018-10-13] MEDS ORDERED: CHOL5000 PO (09:29)
[2018-10-13] MEDS ORDERED: MULT1TAB90 PO (09:29)
[2018-10-13 11:00] VITALS: BP 135/90
[2018-10-13] MEDS ORDERED: POTASSIUM CHLORIDE 20 MEQ TABLET.ER. PO ONE (11:15)
[2018-10-13] MEDS ORDERED: amLODIPine BESYLATE 5 MG TABLET PO ONE (11:15)
[2018-10-13 11:19] VITALS: BP 137/98
--- NOTE | 2018-10-13 11:22 | PDOC ---
PROGRESS NOTES Chief Complaint Chief Complaint toxic encephalopathy Acute EtOH intox, level 421 on admit hypokalemia, weakness and debility hypertension Hx narcotic abuse, on methadone replacement 30/day anxiety d.o, mult substance abuse tobacco use disorder Hepatitis c History of Present Illness History of Present Illness start norvasc lyte replacement regular diet methadone replacement as at home he had a plan to have f/u at [facility] for EtOH rehab, they have now denied , call PAT team to help with plan or outpatient f/u DC soon if able Vitals Vitals Vital Signs Date Time Temp Pulse Resp B/P (MAP) Pulse Ox O2 Delivery O2 Flow Rate FiO2 10/13/18 11:19 94 137/98 10/13/18 08:12 Room Air 10/13/18 07:00 98.3 20 97 98.3 10/13/18 01:09 2.0 Physical Exam General: Alert, Oriented X3, Cooperative, mild distress Heart: Regular rate, No murmurs, Other (tachy) Abdomen: Normal bowel sounds, Soft Extremities: No cyanosis, No edema Skin: No rashes, No significant lesion Assessment and Plan Assessmemt and Plan Problems Medical Problems: (1) Acute alcohol intoxication Status: Acute Comment Review of Relevant I have reviewed the following items ashanti (where applicable) has been applied. Labs Laboratory Tests Test 10/12/18 10:10 White Blood Count 1.5 x10^3/uL (4.0-11.0) Red Blood Count 4.54 x10^6/uL (4.30-5.70) Hemoglobin 13.2 g/dL (13.0-17.5) Hematocrit 40.6 % (39.0-53.0) Mean Corpuscular Volume 89 fL (79-100) Mean Corpuscular Hemoglobin 29 pg (25-35) Mean Corpuscular Hemoglobin Concent 33 g/dL (31-37) Red Cell Distribution Width 16.5 % (11.5-14.5) Platelet Count 51 x10^3/uL (140-400) Neutrophils (%) (Auto) 52 % (31-73) Lymphocytes (%) (Auto) 28 % (24-48) Monocytes (%) (Auto) 17 % (0-9) Eosinophils (%) (Auto) 3 % (0-3) Basophils (%) (Auto) 1 % (0-3) Neutrophils # (Auto) 0.8 x10^3uL (1.8-7.7) Lymphocytes # (Auto) 0.4 x10^3/uL (1.0-4.8) Monocytes # (Auto) 0.2 x10^3/uL (0.0-1.1) Eosinophils # (Auto) 0.1 x10^3/uL (0.0-0.7) Basophils # (Auto) 0.0 x10^3/uL (0.0-0.2) Segmented Neutrophils % 38 % (35-66) Band Neutrophils % 12 % (0-9) Lymphocytes % 30 % (24-48) Monocytes % 16 % (0-10) Eosinophils % 2 % (0-5) Basophils % 2 % (0-3) Platelet Estimate Decreased (ADEQUATE) Prothrombin Time 12.5 SEC (11.7-14.0) Prothromb Time International Ratio 1.0 (0.8-1.1) Sodium Level 135 mmol/L (136-145) Potassium Level 3.0 mmol/L (3.5-5.1) Chloride Level 95 mmol/L (98-107) Carbon Dioxide Level 30 mmol/L (21-32) Anion Gap 10 (6-14) Blood Urea Nitrogen 7 mg/dL (8-26) Creatinine 0.9 mg/dL (0.7-1.3) Estimated GFR (Cockcroft-Gault) 87.0 BUN/Creatinine Ratio 8 (6-20) Glucose Level 157 mg/dL (70-99) Calcium Level 9.2 mg/dL (8.5-10.1) Total Bilirubin 0.6 mg/dL (0.2-1.0) Aspartate Amino Transf (AST/SGOT) 246 U/L (15-37) Alanine Aminotransferase (ALT/SGPT) 84 U/L (16-63) Alkaline Phosphatase 114 U/L (46-116) Total Protein 7.4 g/dL (6.4-8.2) Albumin 3.3 g/dL (3.4-5.0) Albumin/Globulin Ratio 0.8 (1.0-1.7) Medications Current Medications Ondansetron HCl (Zofran) 4 mg 1X ONCE IV Last administered on 10/10/18at 17:09 ; Start 10/10/18 at 17:00; Stop 10/10/18 at 17:05; Status DC Multivitamins 10 ml/Thiamine HCl 100 mg/Folic Acid 1 mg/Sodium Chloride 1,011.2 ml @ 1,000.088 mls/hr 1X ONCE IV Last administered on 10/10/18at 17:16; Start 10/10/18 at 17:15; Stop 10/10/18 at 18:15; Status DC Sodium Chloride 1,000 ml @ 1,000 mls/hr 1X ONCE IV Last administered on at 20:51; Start 10/10/18 at 20:45; Stop 10/10/18 at 21:44; Status DC Multivitamins (Thera M Plus) 1 tab DAILY PO Last administered on 10/13/18 08: 12; Start 10/11/18 at 09:00 Lorazepam (Ativan) 2 mg PRN Q1HR PRN IV For CIWA 8-14 Last administered on 10/13 08:13; Start 10/10/18 at 20:45 Lorazepam (Ativan) 4 mg PRN Q1HR PRN IV For CIWA 15 or greater Last administered on 10/12/18at 09:56; Start 10/10/18 at 20:45 Thiamine Mononitrate (Vitamin B-1) 100 mg DAILY PO Last administered on 08:12; Start 10/11/18 at 09:00 Ondansetron HCl (Zofran) 4 mg 1X ONCE IV ; Start 10/10/18 at 23:15; Stop at 23:16; Status UNV Ondansetron HCl (Zofran) 4 mg PRN Q8HRS PRN IV NAUSEA/VOMITING, 1ST CHOICE Last administered on 10/13/18 04:52; Start 10/10/18 at 23:15 Sodium Chloride 1,000 ml @ 100 mls/hr 1X ONCE IV Last administered on at 00:35; Start 10/11/18 at 00:30; Stop 10/11/18 at 10:29; Status DC Oxycodone/ Acetaminophen (Percocet 5/325) 1 tab PRN Q4HRS PRN PO PAIN Last administered on 10/11/18at 04:58; Start 10/11/18 at 00:30; Stop 10/11/18 at 07:48 ; Status DC Vitamin D (Vitamin D3) 5,000 unit DAILY PO Last administered on 10/13/18 08:12 ; Start 10/11/18 at 09:00 Methadone HCl (Dolophine) 15 mg BID PO Last administered on 10/13/18 08:12; Start 10/11/18 at 10:00 Oxycodone/ Acetaminophen (Percocet 10/325) 1 tab PRN Q4HRS PRN PO pain Last administered on 10/13/18 04:52; Start 10/11/18 at 08:00 Nicotine (Nicoderm Cq 21mg) 1 patch PRN DAILY PRN TD SMOKING CESSATION Last administered on 10/13/18 08:12; Start 10/11/18 at 09:15 Prochlorperazine Edisylate (Compazine) 10 mg PRN Q6HRS PRN IM NAUSEA/VOMITING; Start 10/12/18 at 07:45; Stop 10/12/18 at 08:12; Status DC Prochlorperazine Edisylate (Compazine) 10 mg PRN Q6HRS PRN IV NAUSEA/VOMITING, 2ND CHOICE Last administered on 10/13/18 01:22; Start 10/12/18 at 08:15 Potassium Chloride (Klor-Con) 40 meq 1X ONCE PO Last administered on at 11:18; Start 10/13/18 at 11:15; Stop 10/13/18 at 11:16; Status DC Potassium Chloride (Klor-Con) 20 meq DAILYWBKFT PO ; Start 10/14/18 at 08:00 Amlodipine Besylate (Norvasc) 5 mg 1X ONCE PO Last administered on 10/13/18 11:19; Start 10/13/18 at 11:15; Stop 10/13/18 at 11:16; Status DC Amlodipine Besylate (Norvasc) 5 mg DAILY PO ; Start 10/14/18 at 09:00 Active Scripts Active Thera-M Tablet (Multivits,Ca,Minerals/Iron/Fa) 1 Each Tablet 1 Tab PO DAILY Vitamin D3 (Cholecalciferol (Vitamin D3)) 5,000 Unit Capsule 5,000 Unit PO DAILY Chlordiazepoxide Hcl 25 Mg Capsule 50 Mg PO PRN Q6HRS PRN 20 Days Methadone Hcl 5 Mg/5 Ml Solution 75 Mg PO DAILY 10 Days Reported Metoprolol Succinate ( Xl ) (Metoprolol Succinate) 25 Mg Tab.er.24h 1 Tab PO DAILY [methadone] 75 Mg PO DAILY Vitals/I & O Vital Sign - Last 24 Hours 10/12/18 10/12/18 10/12/18 10/12/18 15:00 18:14 19:00 20:00 Temp 98.2 97.5 98.2 97.5 Pulse 95 121 Resp 20 16 20 B/P (MAP) 140/105 (117) 137/102 (114) Pulse Ox 99 99 97 O2 Delivery Room Air Room Air Room Air Room Air O2 Flow Rate 2.0 10/12/18 10/12/18 10/12/18 10/13/18 21:05 22:05 23:00 00:09 Temp 97.5 97.5 Pulse 101 Resp 20 20 20 20 B/P (MAP) 133/97 (109) Pulse Ox 97 95 95 95 O2 Delivery Room Air Room Air Room Air Room Air 10/13/18 10/13/18 10/13/18 10/13/18 01:09 03:00 04:52 07:00 Temp 98.5 98.3 98.5 98.3 Pulse 100 94 Resp 18 20 18 20 B/P (MAP) 149/109 (122) 137/98 (111) Pulse Ox 95 98 98 97 O2 Delivery Room Air Room Air Room Air Room Air O2 Flow Rate 2.0 10/13/18 10/13/18 10/13/18 08:00 08:12 11:19 Pulse 94 B/P (MAP) 137/98 O2 Delivery Room Air Room Air Intake and Output 10/12/18 10/12/18 10/13/18 14:59 22:59 06:59 Intake Total 180 ml 610 ml 350 ml Output Total 325 ml 725 ml 200 ml Balance -145 ml -115 ml 150 ml JODY ALVARES MD Oct 13, 2018 11:22
--- NOTE | 2018-10-13 15:56 | NUR ---
Discharge Note: CHEYENNE PULIDO Discharge instructions and discharge home medications reviewed with Patient and a copy given. All questions have been answered and understanding verbalized. The following instructions and handouts were given: Patient given education regarding alcohol withdrawl and medication. Patient Given information by Diana from [facility] team about following up with [facility]. Also information about [facility] if patient decides to go to rehab. Discontinued lines and drains: Removed per protocol. Patient discharged [facility].
[2018-10-14] MEDS ORDERED: POTASSIUM CHLORIDE 20 MEQ TABLET.ER. PO SCH (08:00)
[2018-10-14] MEDS ORDERED: amLODIPine BESYLATE 5 MG TABLET PO SCH (09:00)
--- NOTE | 2018-10-14 18:01 | PDOC3 ---
Discharge Summary Visit Information Date of Admission: Oct 10, 2018 Date of Discharge: Oct 13, 2018 Admitting Diagnosis: intoxicated Final Diagnosis toxic encephalopathy Acute EtOH intox, level 421 on admit hypokalemia, weakness and debility hypertension Hx narcotic abuse, on methadone replacement 30/day anxiety d.o, mult substance abuse tobacco use disorder Hepatitis c Problems Medical Problems: (1) Acute alcohol intoxication Status: Acute Brief Hospital Course Allergies Allergies Coded Allergies Type Severity Reaction Last Updated Verified No Known Drug Allergies 10/23/17 No Vital Signs Vital Signs Date Time Temp Pulse Resp B/P (MAP) Pulse Ox O2 Delivery O2 Flow Rate FiO2 10/13/18 12:47 Room Air 10/13/18 11:19 94 137/98 10/13/18 11:00 98.2 20 96 98.2 Brief Hospital Course Mr. Harrington is a 58 old male, admit for EtOH intox, supposed to [facility], EtOH level > 400 here. intox ,then withdrawl sx. start norvasc lyte replacement and vitamins regular diet methadone replacement as at home, but has not followed in clinic well, may be dropped from their care Discharge Information Condition at Discharge: Improved Follow Up: Weeks Disposition/Orders: D/C to Home Scheduled Cholecalciferol (Vitamin D3) (Vitamin D3) 5,000 Unit Capsule, 5,000 UNIT PO DAILY for vitamin deficiency, #30 Prescribed by: JODY ALVARES on 10/13/18928 Methadone Hcl (Methadone Hcl) 5 Mg/5 Ml Solution, 75 MG PO DAILY for 10 Days Prescribed by: KIT YEUNG on 01/30/18 1121 Last Action: Reviewed on 10/11/1825 by OBDULIA WHITLEY RN Metoprolol Succinate (Metoprolol Succinate ( Xl )) 25 Mg Tab.er.24h, 1 TAB PO DAILY, #30 Ref 5 (Reported) Entered as Reported by: GI CERVANTES on 01/28/181940 Last Action: Reviewed on 10/11/1825 by OBDULIA WHITLEY RN Multivits,Ca,Minerals/Iron/Fa (Thera-M Tablet) 1 Each Tablet, 1 TAB PO DAILY for vitamin deficiency, #90 Prescribed by: JODY ALVARES on 10/13/18928 [methadone] , 75 MG PO DAILY, (Reported) Entered as Reported by: GI CERVANTES on 01/28/181940 Last Action: Reviewed on 10/11/1825 by OBDULIA WHITLEY RN Scheduled PRN Chlordiazepoxide Hcl (Chlordiazepoxide Hcl) 25 Mg Capsule, 50 MG PO PRN Q6HRS PRN for ANXIETY/AGITATION (2nd Choice) for 20 Days Prescribed by: KIT YEUNG on 01/30/18 112 Last Action: Reviewed on 10/11/1825 by OBDULIA WHITLEY RN Patient Instructions Patient Instructions > 30- minutes, face to face JODY ALVARES MD Oct 14, 2018 18:01
== END 2018-10-13 15:51 | disposition home or self-care (01) | DRG 896 ==
LOC: ER 16:33 → 5 NORTH 20:35
PROVIDERS: ADMIT Internal Medicine; ATTEND Internal Medicine
DX: F10.229 Alcohol dependence with intoxication, unspecified (principal); G92 Toxic encephalopathy; F10.239 Alcohol dependence with withdrawal, unspecified; B19.20 Unspecified viral hepatitis C without hepatic coma; E87.6 Hypokalemia; F17.210 Nicotine dependence, cigarettes, uncomplicated; F41.9 Anxiety disorder, unspecified; I10 Essential (primary) hypertension; H57.12 Ocular pain, left eye; M47.812 Spondylosis without myelopathy or radiculopathy, cervical region; F11.10 Opioid abuse, uncomplicated; Y90.8 Blood alcohol level of 240 mg/100 ml or more; W18.39XA Other fall on same level, initial encounter; Z82.49 Family history of ischemic heart disease and other diseases of the circulatory system; Z89.512 Acquired absence of left leg below knee; Y93.89 Activity, other specified; Y92.89 Other specified places as the place of occurrence of the external cause; Y99.8 Other external cause status
CPT/HCPCS: 36415; 70450; 70486; 71045; 72125; 80053; 80307; 81001; 82310; 82553; 83605; 83735; 85007; 85025; 85610; 96365; 96366; 96375; G0480; J0780; J2060; J2405; J7030; 99285-25

== ENCOUNTER 2019-07-29 20:30 | Emergency (ER) | payer SELFPAY ==
[~2019-07-29] VITALS: Ht 170.2 cm; Wt 70.8 kg
[~2019-07-29 20:30] MED LIST changes: +CHOL5000 PO; +MULT1TAB90 PO
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
[2019-07-29] MEDS ORDERED: IV NORMAL SALINE 1000ML BAG 1,000 ML IV ONE (21:30)
[2019-07-29 22:30] LABS: BASO % 1 % (0-3); EOS % 1 % (0-3); HEMATOCRIT 41.6 % (39.0-53.0); HEMOGLOBIN 14.3 g/dL (13.0-17.5); LYMPH # 0.5 x10^3/uL (1.0-4.8); LYMPH % 17 % (24-48); MEAN CORPUSCULAR HEMOGLOBIN 35 pg (25-35); MEAN CORPUSCULAR HGB CONC 34 g/dL (31-37); MEAN CORPUSCULAR VOLUME 103 fL (79-100); MONO # 0.2 x10^3/uL (0.0-1.1); MONO % 7 % (0-9); NEUT # 2.2 x10^3/uL (1.8-7.7); NEUT % 74 % (31-73); PLATELET COUNT 252 x10^3/uL (140-400); RED BLOOD COUNT 4.04 x10^6/uL (4.30-5.70); RED CELL DISTRIBUTION WIDTH 14.4 % (11.5-14.5)
[2019-07-29 22:42] LABS: CALCIUM 7.7 mg/dL (8.5-10.1); GFR 76.7; POTASSIUM 3.6 mmol/L (3.5-5.1)
[2019-07-29 22:48] LABS: ALBUMIN 3.2 g/dL (3.4-5.0); ALBUMIN/GLOBULIN RATIO 0.8 (1.0-1.7); MAGNESIUM 1.5 mg/dL (1.8-2.4); TOTAL BILIRUBIN 0.2 mg/dL (0.2-1.0); TOTAL PROTEIN 7.2 g/dL (6.4-8.2)
[2019-07-29 22:54] LABS: ACETAMIN < 2 mcg/ml (10-30); SALIC 3.1 mg/dL (2.8-20.0)
[2019-07-29 23:56] LABS: BILIRUBIN,URINE NEGATIVE (NEG); CLARITY,URINE CLEAR; COLOR,URINE YELLOW; NITRITE,URINE NEGATIVE (NEG); PH,URINE 6.5; PROTEIN,URINE 100 mg/dL (NEG-TRACE)
[2019-07-30 00:01] LABS: SQUAMOUS EPITHELIAL CELL,UR OCC /LPF
[2019-07-30 00:02] LABS: BACTERIA,URINE 0 /HPF (0-FEW); HYALINE CASTS, URINE FEW /HPF
[2019-07-30 00:09] LABS: BARBITURATES NEG (NEG); BENZODIAZEPINES NEG (NEG); CANNABINOIDS NEG (NEG); COCAINE NEG (NEG); METHADONE NEG (NEG); OPIATES POS (NEG); PHENCYCLIDINE NEG (NEG)
[2019-07-30 00:12] LABS: AMPHETAMINE/METHAMPHETAMINE POS (NEG)
[2019-07-30 00:30] VITALS: BP 158/112
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
--- NOTE | 2019-07-30 05:31 | EKG ---
[facility] [address] [place] [address] Test Date: 2019-07-29 Test Time: 20:34:28 Pat Name: CHEYENNE PULIDO Department: Room: Gender: M Product Scientist: : 1960 Requested By: MIGUEL MUÑOZ Order Number: [id number] Reading MD: Measurements Intervals [place] Rate: 146 P: -27 UT: 90 QRS: -21 QRSD: 76 T: 36 QT: 280 QTc: 437 Interpretive Statements SINUS TACHYCARDIA LEFT ATRIAL ABNORMALITY LEFTWARD AXIS LOW LIMB LEAD VOLTAGE T ABNORMALITY IN HIGH LATERAL LEADS ABNORMAL ECG No previous ECG available for comparison
== END 2019-07-30 00:59 | disposition home or self-care (01) ==
LOC: ER 20:30
DX: T40.1X1A Poisoning by heroin, accidental (unintentional), initial encounter (principal); S60.221A Contusion of right hand, initial encounter; R41.82 Altered mental status, unspecified; F19.10 Other psychoactive substance abuse, uncomplicated; F10.20 Alcohol dependence, uncomplicated; Y90.6 Blood alcohol level of 120-199 mg/100 ml; W51.XXXA Accidental striking against or bumped into by another person, initial encounter; Y93.89 Activity, other specified; Y92.89 Other specified places as the place of occurrence of the external cause; Y99.8 Other external cause status
CPT/HCPCS: 36415; 73130; 80053; 80307; 80329; 81001; 83735; 85025; 93005; 96360; 99285; G0480; J7030